=== PATIENT | female | born 1990 | race Caucasian/White ===

== ENCOUNTER 2018-12-28 00:49 | Emergency (ER) | payer OTHER ==
[~2018-12-28] VITALS: Ht 160 cm; Wt 64.4 kg
[2018-12-28 00:55] VITALS: Ht 160 cm; Wt 64.4 kg
[2018-12-28 03:30] VITALS: BP 115/56
== END 2018-12-28 03:30 | disposition left against medical advice (07) ==
LOC: ED 00:49
DX: Z53.21 Procedure and treatment not carried out due to patient leaving prior to being seen by health care provider (principal)